=== PATIENT | male | born 1960 | race Caucasian/White ===

== ENCOUNTER 2019-02-02 07:03 | Inpatient (IN) ==
[2019-02-02] MEDS ORDERED: NORMAL SALINE 1,000 ML IV ONE (07:20)
[2019-02-02] MEDS ORDERED: ONDANSETRON HCL/PF 2 MG/ML VIAL IV ONE (07:20)
[2019-02-02] MEDS ORDERED: LORazepam 2 MG/ML DISP.SYRIN IV ONE (07:21)
--- NOTE | 2019-02-02 07:23 | ERNOTE ---
Medical Problem HPI - Narrative Date of Service: 02/02/19 - General Chief Complaint: Nausea/Vomiting Time Seen by Provider: 02/02/19 07:15 Source: patient - Immun/Allergies/Home Medications Immunizations: IMMUNIZATION HX Immunizations Up to Date Yes Allergies/Adverse Reactions: Allergies No Known Allergies Allergy (Verified 02/02/19 07:32) Home Medications: HOME MEDICATIONS Alprazolam 1 mg PO BID 02/02/19 [Last Taken Unknown] - History of Present History Narrative: 58-year-old gentleman comes to the ER complaining of nausea and vomiting which is been going on since 1030 last night. Came on out of the blue. Patient says he has had multiple episodes of bilious emesis throughout the night. Some mild epigastric discomfort. No diarrhea. No blood in his stool or emesis. No fever. He does have subjective chills. The patient drinks daily. The patient says he has been able to drink for the last 24 hours or so because of the vomiting. He also takes alprazolam up to 3 mg a day. Has not been able to keep that down either. He admits to feeling tremulous and anxious. He denies any chest pain. He denies shortness of breath. Denies sore throat runny nose blurred vision headache or other complaints Review of Systems - Review of Systems Constitutional: Present: malaise EYE: Present: no symptoms reported ENT: Present: no symptoms reported Respiratory: Present: no symptoms reported Cardiology: Present: no symptoms reported Gastrointestinal/Abdominal: Present: See HPI Genitourinary: Present: no symptoms reported Musculoskeletal: Present: no symptoms reported Skin: Present: no symptoms reported Neurological: Present: anxiety Endocrine: Present: no symptoms reported Hematologic/Lymphatic: Present: no symptoms reported Psych: Present: no symptoms reported All Other Systems: All systems neg except as marked Medical History (Updated 08/01/18 @ 08:45 by SVETLANA De La Cruz) Depression (Chronic) Refused influenza vaccine (Acute) Onset Date: ~08/01/18 COPD (chronic obstructive pulmonary disease) (Chronic) Onset Date: Unknown Anxiety disorder (Chronic) Onset Date: Unknown Lyme disease Onset Date: Unknown Surgical History: Surgical History (Updated 07/25/18 @ 07:57 by Awa Avina RN) H/O wisdom tooth extraction Onset Date: ~1997 History of tonsillectomy Onset Date: ~1967 skin cancer removal Onset Date: Unknown Family History: Family History (Updated 07/25/18 @ 07:59 by Awa Avina RN) Mother Alive and well Brother Alive and well Father , age 69 Dementia Parkinsons disease Emphysema, unspecified Grandmother Alzheimers disease Grandfather Spinal cord cancer Grandfather Parkinsons disease Son Alive and well Daughter Alive and well Social History: Preferred Language Macedonian Do you have any restorationism or No cultural preference? Smoking Status Current every day smoker Smoking packs per day 1 Alcohol Use heavy Drug Use marijuana (Last Updated 08/01/18 @ 08:46 by SVETLANA De La Cruz) No Social History Section defined Physical Exam - Physical Exam General Appearance: Present: wd/wn, alert, other - Patient appears uncomfortable, slightly tremulous Head Exam: Present: normal inspection, no evidence of injury Eye Exam: Normal inspection: bilateral, PERRL: bilateral, EOMI: bilateral Ears, Nose, Throat: Present: normal ENT inspection, normal pharynx Neck: Present: normal inspection, nontender Respiratory: Present: no respiratory distress, normal breath sounds, chest nontender, lungs clear Cardiovascular/Chest: Present: regular rate, rhythm, no murmur Gastrointestinal/Abdominal: Present: soft, other - Bowel sounds are present. Mild diffuse tenderness. No rebound or guarding Back Exam: Present: normal inspection, normal range of motion, no vertebral tenderness Extremity Exam: Present: normal inspection, non-tender, normal range of motion, no edema Neurological Exam: Present: alert, oriented, normal mood/affect, no motor/sensory deficits, other - Patient has some mild tremulousness, seems anxious Skin Exam: Present: normal color, warm/dry Lymphatic Exam: Present: no adenopathy Progress - Vital Signs Patient's Vital Signs:: I have reviewed the patient's vital signs. Vital Signs: Vital Signs 02/02/19 07:04 02/02/19 07:09 Temperature 36.9 C Pulse Rate 87 Respiratory Rate 22 H Blood Pressure 159/107 H 156/91 H O2 Sat by Pulse Oximetry 99 - EKG EKG #1 EKG read: Interp. by me EKG Comments: EKG demonstrates sinus rhythm with a ventricular rate of 82. Normal axis. Normal intervals. No ST elevation. Sinus arrhythmia. J-point elevation in V3. T waves have normal morphology. Some artifact is present - Progress/Reassessment Chief Complaint: Nausea/Vomiting Plan - Plan Plan: 58-year-old gentleman with nausea and vomiting since last night. Heavy drinker. He is tremulous. Has not been able to take his anxiety medicine overnight. Given Ativan and fluids as well as antiemetics. Case will be taken over by Dr. Sanchez at 8 AM. I really suspect the patient has pancreatitis. No x-rays have been ordered at this time. Departure Clinical Impression: Vomiting - Departure Disposition: Still a patient Condition: Stable Referrals: Cait Newsome FNP [Primary Care Provider] -
[2019-02-02 07:39] LABS: Hematocrit 40.3 % (42.0-52.0); Hemoglobin 14.6 gm/dL (13.5-18.0); Mean Cell Volume 86.5 fl (78-100); Mean Corpuscular Hemoglobin 31.3 pg (27-31); Mean Corpuscular Hgb Conc 36.2 g/dl (32-36); Mean Platelet Volume 8.5 fl (8-11.3); Neutrophil # 4.5 K/mm3 (1.3-6.0); Neutrophil % 71.4 % (42-75.0); Platelet Count 262 K/mm3 (150-450); Red Blood Count 4.66 M/mm3 (4.7-6.0); Red Cell Distribution Width 11.8 % (11.5-14.0); White Blood Count 6.3 K/mm3 (4.0-10.5)
[2019-02-02 07:58] LABS: ALT 19 U/L (19-67); AST 26 U/L (0-48); Albumin * 4.2 gm/dl (3.4-5.0); Alkaline Phosphatase * 66 U/L (50-170); Anion Gap 17.6 mmol/L (6.8-13.8); BUN/Creatinine Ratio 8.8 (9.0-21.6); Bilirubin, Total 1.2 mg/dL (0.0-1.1); Blood Urea Nitrogen 6 mg/dL (6-23); Ca. Corrected For Albumin 8.7 mg/dL (8.4-10.2); Calcium * 9.2 mg/dL (7.9-10.9); Carbon Dioxide 21.9 mmol/L (24-32.6); Chloride 87 mmol/L (97-106); Glucose * 94 mg/dL (70-110); Lipase 63 U/L (73-393); Potassium 3.5 mmol/L (3.4-4.6); Sodium 123 mmol/L (132-142); Total Protein 7.1 gm/dL (6.2-8.2)
[2019-02-02 07:59] LABS: Troponin I Less than 0.017 ng/mL (0.00-0.10)
[2019-02-02] MEDS ORDERED: SODIUM CHLORIDE 3 % 500 ML IV SCH (08:15)
[2019-02-02 08:53] LABS: Urine Bilirubin Negative (NEGATIVE); Urine Ketone 15 mg/dL (NEGATIVE); Urine Nitrite Negative (NEGATIVE); Urine Protein Negative (NEGATIVE); Urine Urobilinogen Normal (NORMAL)
[2019-02-02 09:00] LABS: Urine Amorphous Sediment Few - 1+ (NONE-FEW); Urine Appearance Cloudy (CLEAR); Urine Bacteria None Seen; Urine Blood 5 /ul (NEGATIVE); Urine Color Pale Yellow; Urine RBC TRACE /hpf (0-5); Urine WBC None Seen /hpf (0-5)
[2019-02-02 09:05] LABS: Cocaine Ur Negative (NEGATIVE); Urine Barbiturate Negative (NEGATIVE); Urine Benzodiazepines Negative (NEGATIVE); Urine Opiates Negative (NEGATIVE); Urine PCP Negative (NEGATIVE); Urine THC Negative (NEGATIVE)
[2019-02-02] MEDS: MULTIVIT INFUSN,ADULT 4,VIT K 10 ML, THIAMINE HCL 100 MG in NORMAL SALINE 1,000 ML IV SCH ×2 (09:32→17:21)
[2019-02-02] MEDS ORDERED: LORazepam 2 MG/ML DISP.SYRIN IV PRN ×3 (10:11)
--- NOTE | 2019-02-02 12:56 | HP ---
Chief Complaint - Chief Complaint Date of Service: 02/02/19 Time of Service: 12:41 Chief Complaint: Nausea/vomiting, hyponatremia, alcohol intake History of Present Illness: 58-year-old male with history of alcohol abuse and anxiety presented to the ER for nausea and vomiting which started the night before after eating what he thinks was bad coleslaw. Patient states that he has vomited "multiple times throughout the night" with some abdominal pain. He denies diarrhea, or blood in his emesis. He denies fevers or chills. Patient does admit to feeling anxious, states he has been able to keep his Xanax down for anxiety since he got nauseated. Patient's lab work was pertinent for normal white count and hemogram, can panel showed him to be hyponatremic at 123 with normal kidney function and a slightly elevated bilirubin, his urine showed trace urine blood but no other abnormalities, and his tox screen was positive for alcohol 58. Patient was admitted to the floor as inpatient due to hyponatremia. Patient was started on 3% normal saline by initial ER provider, Covering provider and I discussed this and decided it was best to slow down his sodium correction and switched him over to a banana bag to be ran out 200 cc an hour. Patient endorses drinking daily anywhere from 8-12 beers a night. Patient states he takes Xanax for anxiety. Medical History (Updated 02/02/19 @ 09:04 by Heidi Sanchez MD) Depression (Chronic) Refused influenza vaccine (Acute) Onset Date: ~08/01/18 COPD (chronic obstructive pulmonary disease) (Chronic) Onset Date: Unknown Anxiety disorder (Chronic) Onset Date: Unknown Lyme disease Onset Date: Unknown Surgical History: Surgical History (Updated 07/25/18 @ 07:57 by Awa Avina RN) H/O wisdom tooth extraction Onset Date: ~1997 History of tonsillectomy Onset Date: ~1967 skin cancer removal Onset Date: Unknown Family History: Family History (Updated 07/25/18 @ 07:59 by Awa Avina RN) Mother Alive and well Brother Alive and well Father , age 69 Dementia Parkinsons disease Emphysema, unspecified Grandmother Alzheimers disease Grandfather Spinal cord cancer Grandfather Parkinsons disease Son Alive and well Daughter Alive and well Social History: Patient Lives/Resources daughter Utilized Preferred Language Polish Do you have any caodaism or No cultural preference? Smoking Status Current every day smoker Have you smoked in the past 12 Yes months Smoking packs per day 1 Do you dip or chew tobacco No Alcohol Use heavy Drug Use marijuana (Last Updated 08/01/18 @ 08:46 by SVETLANA De La Cruz) No Social History Section defined Review Of Systems (GEN) - Review of Systems Generalized/Overall Review: Present: Diaphoresis - And slight agitation. Absent: Weakness, Chills, Fever EENTM: Absent: Blurred Vision, Double Vision Respiratory: Absent: Cough, Shortness of Breath Cardiac: Absent: Chest Pain, Edema, Palpitations Abdominal: Present: Nausea, Vomiting, Abdominal Pain. Absent: Hematemesis, Diarrhea Genitourinary: Present: No Symptoms Reported Musculoskeletal: Present: No Symptoms Reported Skin: Present: No Symptoms Reported Immunizations: IMMUNIZATION HX Immunizations Up to Date Yes Allergies/Adverse Reactions: Allergies Allergy/AdvReac Type Severity Reaction Status Date / Time No Known Allergies Allergy Verified 02/02/19 07:32 Home Medications: HOME MEDICATIONS Alprazolam 1 mg PO TID PRN 02/02/19 [Last Taken Unknown] Exam - Exam Vital Signs: Vital Signs - Last Taken Temp 37.2 C 02/02/19 11:40 Pulse 79 02/02/19 11:40 Resp 18 02/02/19 11:40 BP 142/85 02/02/19 11:40 Pulse Ox 99 02/02/19 11:40 Constitutional: Present: Alert, Oriented x3, Somnolent, Looks Older than stated age ENT Exam: Present: hearing grossly normal. Absent: nasal congestion, nasal drainage Eye Exam: bilateral eye: normal inspection Neck: Present: non-tender, supple Respiratory: Present: lungs clear, normal breath sounds Cardiovascular/Chest: Present: regular rate, rhythm, no murmur Abdomen: Present: Normal bowel sounds, soft, nontender /Rectal: Present: Exam deferred Skin Exam: Present: normal color, warm/dry Neurologic: Present: alert, oriented x 3, depressed affect Appearance: Present: disheveled Eye contact: Present: normal speech, avoids eye contact Thoughts: Present: normal thought pattern Diagnostic Studies: Abnormal Lab Results 02/02/19 02/02/19 02/02/19 Range/Units 07:34 07:34 07:34 RBC 4.66 L (4.7-6.0) M/mm3 Hct 40.3 L (42.0-52.0) % MCH 31.3 H (27-31) pg MCHC 36.2 H (32-36) g/dl Lymphocytes # 1.31 L (1.5-3.5) k/mm3 Sodium 123 L (132-142) mmol/L Plasma Sodium 123 L (130-142) mmol/L Chloride 87 L (97-106) mmol/L Carbon Dioxide 21.9 L (24-32.6) mmol/L Anion Gap 17.6 H (6.8-13.8) mmol/L BUN/Creatinine Ratio 8.8 L (9.0-21.6) Total Bilirubin 1.2 H (0.0-1.1) mg/dL Lipase 63 L (73-393) U/L Urine pH (5.0-7.0) pH Urine Blood (NEGATIVE) /ul Ethyl Alcohol 58.0 H (0.0-10.0) mg/dL 02/02/19 Range/Units 08:53 RBC (4.7-6.0) M/mm3 Hct (42.0-52.0) % MCH (27-31) pg MCHC (32-36) g/dl Lymphocytes # (1.5-3.5) k/mm3 Sodium (132-142) mmol/L Plasma Sodium (130-142) mmol/L Chloride (97-106) mmol/L Carbon Dioxide (24-32.6) mmol/L Anion Gap (6.8-13.8) mmol/L BUN/Creatinine Ratio (9.0-21.6) Total Bilirubin (0.0-1.1) mg/dL Lipase (73-393) U/L Urine pH 8.0 H (5.0-7.0) pH Urine Blood 5 H (NEGATIVE) /ul Ethyl Alcohol (0.0-10.0) mg/dL Laboratory Results WBC 6.3 K/mm3 (4.0-10.5) 02/02/19 07:34 RBC 4.66 M/mm3 (4.7-6.0) L 02/02/19 07:34 Hgb 14.6 gm/dL (13.5-18.0) 02/02/19 07:34 Hct 40.3 % (42.0-52.0) L 02/02/19 07:34 MCV 86.5 fl (78-100) 02/02/19 07:34 MCH 31.3 pg (27-31) H 02/02/19 07:34 MCHC 36.2 g/dl (32-36) H 02/02/19 07:34 RDW 11.8 % (11.5-14.0) 02/02/19 07:34 Plt Count 262 K/mm3 (150-450) 02/02/19 07:34 MPV 8.5 fl (8-11.3) 02/02/19 07:34 Immature Gran % (Auto) 0.30 % (0.001-0.429) 02/02/19 07:34 Immature Gran # (Auto) 0.02 K/mm3 (0.000-0.0310) 02/02/19 07:34 71.4 % (42-75.0) 02/02/19 07:34 20.9 % (20-51) 02/02/19 07:34 6.8 % (0.0-9) 02/02/19 07:34 0.0 % (0.0-3.0) 02/02/19 07:34 0.6 % (0.0-1.0) 02/02/19 07:34 Nucleated RBC % 0.0 k/mm3 (0-1) 02/02/19 07:34 4.5 K/mm3 (1.3-6.0) 02/02/19 07:34 1.31 k/mm3 (1.5-3.5) L 02/02/19 07:34 0.4 k/mm3 (0.0-1.0) 02/02/19 07:34 0.0 k/mm3 (0.0-0.7) 02/02/19 07:34 Absolute Basophils 0.0 k/mm3 (0.0-0.1) 02/02/19 07:34 Sodium 123 mmol/L (132-142) L 02/02/19 07:34 123 mmol/L (130-142) L 02/02/19 07:34 Potassium 3.5 mmol/L (3.4-4.6) 02/02/19 07:34 Chloride 87 mmol/L (97-106) L 02/02/19 07:34 Carbon Dioxide 21.9 mmol/L (24-32.6) L 02/02/19 07:34 17.6 mmol/L (6.8-13.8) H 02/02/19 07:34 BUN 6 mg/dL (6-23) 02/02/19 07:34 0.68 mg/dL (0.4-1.4) 02/02/19 07:34 Est GFR (Non-Af Amer) 126 mL/min (60-130) D 02/02/19 07:34 8.8 (9.0-21.6) L 02/02/19 07:34 94 mg/dL (70-110) 02/02/19 07:34 Calcium 9.2 mg/dL (7.9-10.9) 02/02/19 07:34 Calcium Adj for Albumin 8.7 mg/dL (8.4-10.2) 02/02/19 07:34 1.2 mg/dL (0.0-1.1) H 02/02/19 07:34 AST 26 U/L (0-48) 02/02/19 07:34 ALT 19 U/L (19-67) 02/02/19 07:34 66 U/L (50-170) 02/02/19 07:34 Less than 0.017 ng/mL (0.00-0.10) 02/02/19 07:34 7.1 gm/dL (6.2-8.2) 02/02/19 07:34 4.2 gm/dl (3.4-5.0) 02/02/19 07:34 63 U/L (73-393) L 02/02/19 07:34 Pale yellow 02/02/19 08:53 Cloudy (CLEAR) 02/02/19 08:53 8.0 pH (5.0-7.0) H 02/02/19 08:53 Ur Specific [place] 1.010 SP.GR. (1.005-1.030) 02/02/19 08:53 Negative mg/dL (NEGATIVE) 02/02/19 08:53 Negative mg/dL (NEGATIVE) 02/02/19 08:53 15 mg/dL (NEGATIVE) 02/02/19 08:53 5 /ul (NEGATIVE) H 02/02/19 08:53 Negative (NEGATIVE) 02/02/19 08:53 Negative mg/dl (NEGATIVE) 02/02/19 08:53 Normal EU/dl (NORMAL) 02/02/19 08:53 Ur Leukocyte Esterase Negative /ul (NEGATIVE) 02/02/19 08:53 Trace /hpf (0-5) 02/02/19 08:53 None seen /hpf (0-5) 02/02/19 08:53 Ur Epithelial Cells None seen /hpf (0-5) 02/02/19 08:53 Amorphous Sediment Few - 1+ (NONE-FEW) 02/02/19 08:53 None seen (NONE) 02/02/19 08:53 No culture indicated 02/02/19 08:53 Negative (NEGATIVE) 02/02/19 08:53 Negative (NEGATIVE) 02/02/19 08:53 Ur Phencyclidine Scrn Negative (NEGATIVE) 02/02/19 08:53 Urine Amphetamine Negative (NEGATIVE) 02/02/19 08:53 U Benzodiazepines Scrn Negative (NEGATIVE) 02/02/19 08:53 Negative (NEGATIVE) 02/02/19 08:53 Negative (NEGATIVE) 02/02/19 08:53 Ethyl Alcohol 58.0 mg/dL (0.0-10.0) H 02/02/19 07:34 Assessment/Plan - Narrative Narrative: 58-year-old male admitted to the floor for hyponatremia, stopped the 3% saline infusion and started him on a banana bag. Thiamine and folate to be given orally starting tomorrow, replenished today in his banana bag. We will monitor BMPs every 6 hours for sodium correction. CIWA scores ordered due to alcoholism and concern for withdrawal. Lorazepam to be given as directed for signs of withdrawal. Xanax currently being held for his anxiety as he will receive lorazepam. Currently vital signs are stable. Initially blood pressure was elevated but this has since returned to normal. He is afebrile, normal heart rate and sats. We will order clear liquid diet, zofran as needed for nausea. SCDs to be worn while in bed. Vital signs every 2 hours. Nurse will call with any questions or concerns. - Assessment/Plan (1) Hyponatremia Problem: Acute (2) ETOH abuse Problem: Acute (3) Gastroenteritis Problem: Acute (4) Anxiety disorder Problem: Chronic Qualifiers:
[2019-02-02 13:12] LABS: BUN/Creatinine Ratio 8.3 (9.0-21.6); Calcium * 8.7 mg/dL (7.9-10.9); Carbon Dioxide 22.7 mmol/L (24-32.6); Estimated Creat Clear 143.7; Potassium 3.7 mmol/L (3.4-4.6)
[2019-02-02] MEDS ORDERED: ONDANSETRON HCL/PF 2 MG/ML VIAL IV PRN (14:09)
[2019-02-02] MEDS: NORMAL SALINE 1,000 ML IV PRN ×2 (15:18→22:09)
[2019-02-02] MEDS ORDERED: MAG HYDROX/ALUMINUM HYD/SIMETH 30 ML UDC PO ONE (18:14)
[2019-02-02] MEDS ORDERED: LIDOCAINE HCL 20 ML UDC PO ONE (18:14)
[2019-02-02] MEDS ORDERED: SUCRALFATE 1 G/10 ML UDC PO ONE (18:14)
[2019-02-02 19:00] LABS: Anion Gap 12.9 mmol/L (6.8-13.8); BUN/Creatinine Ratio 7.9 (9.0-21.6); Calcium * 8.1 mg/dL (7.9-10.9); Carbon Dioxide 25.4 mmol/L (24-32.6); Estimated Creat Clear 113.4; Potassium 3.3 mmol/L (3.4-4.6)
[2019-02-03 01:02] LABS: Anion Gap 12.4 mmol/L (6.8-13.8); BUN/Creatinine Ratio 9.2 (9.0-21.6); Calcium * 8.5 mg/dL (7.9-10.9); Carbon Dioxide 26.2 mmol/L (24-32.6); Estimated Creat Clear 132.6; Potassium 3.6 mmol/L (3.4-4.6)
[2019-02-03 06:39] LABS: Anion Gap 10.6 mmol/L (6.8-13.8); BUN/Creatinine Ratio 11.3 (9.0-21.6); Calcium * 8.4 mg/dL (7.9-10.9); Carbon Dioxide 25.7 mmol/L (24-32.6); Estimated Creat Clear 121.4; Potassium 3.3 mmol/L (3.4-4.6)
[2019-02-03] MEDS ORDERED: FOLIC ACID 1 MG TABLET PO SCH (09:00)
[2019-02-03] MEDS ORDERED: THIAMINE HCL 100 MG TABLET PO SCH (09:00)
[2019-02-03] MEDS ORDERED: POTASSIUM CHLORIDE 40 MEQ/15 ML LIQUID PO ONE (10:28)
--- NOTE | 2019-02-03 10:38 | DS ---
(1) Hyponatremia Problem: Resolved (2) ETOH abuse Problem: Chronic (3) Gastroenteritis Problem: Resolved (4) Anxiety disorder Problem: Chronic Qualifiers: Description of Stay: 58-year-old male admitted to the floor due to hyponatremia likely from chronic alcohol abuse as well as gastroenteritis. Hyponatremia resolved with gentle normal saline fluid resuscitation with every 6 hours BMPs. On day of discharge his sodium was back up to 135 (was 123). Patient stated he was feeling much better, denied any nausea or vomiting since being here. He was hungry and ready to be started back on a regular diet which he was given prior to discharge which he tolerated well. His vital signs been stable most recent blood pressure 122/75, heart rate 62, afebrile. Respiratory rate was 16 sat 90% room air. Patient was monitored for alcohol withdrawal which he had low CIWA scores, not requiring any benzodiazepine therapy. Patient was discharged home in stable condition, advised to follow-up with his PCP in 1-2 weeks. No changes to his home medications. Procedures Performed: none Results and Findings: Lab Pending Results 02/02/19 07:34: WBC 6.3, RBC 4.66 L, Hgb 14.6, Hct 40.3 L, MCV 86.5, MCH 31.3 H, MCHC 36.2 H, RDW 11.8, Plt Count 262, MPV 8.5, Immature Gran % (Auto) 0.30, Immature Gran # (Auto) 0.02, Neutrophils % 71.4, Lymphocytes % 20.9, Monocytes % 6.8, Eosinophils % 0.0, Basophils % 0.6, Nucleated RBC % 0.0, Neutrophils # 4.5, Lymphocytes # 1.31 L, Monocytes # 0.4, Eosinophils # 0.0, Absolute Basophils 0.0 02/02/19 07:34: Sodium 123 L, Plasma Sodium 123 L, Potassium 3.5, Chloride 87 L, Carbon Dioxide 21.9 L, Anion Gap 17.6 H, BUN 6, Creatinine 0.68, Est GFR (Non-Af Amer) 126 D, BUN/Creatinine Ratio 8.8 L, Random Glucose 94, Calcium 9.2, Calcium Adj for Albumin 8.7, Total Bilirubin 1.2 H, AST 26, ALT 19, Alkaline Phosphatase 66, Troponin I Less than 0.017, Total Protein 7.1, Albumin 4.2, Lipase 63 L 07/06/19 07:34: Ethyl Alcohol 58.0 H 02/02/19 08:53: Urine Color Pale yellow, Urine Appearance Cloudy, Urine pH 8.0 H, Ur Specific [place] 1.010, Urine Protein Negative, Urine Glucose (UA) Negative, Urine Ketones 15, Urine Blood 5 H, Urine Nitrate Negative, Urine Bilirubin Negative, Urine Urobilinogen Normal, Ur Leukocyte Esterase Negative, Urine RBC Trace, Urine WBC None seen, Ur Epithelial Cells None seen, Amorphous Sediment Few - 1+, Urine Bacteria None seen, Urine Culture Comments No culture indicated 02/02/19 08:53: Urine Opiates Screen Negative, Barbiturate Screen Negative, Ur Phencyclidine Scrn Negative, Urine Amphetamine Negative, U Benzodiazepines Scrn Negative, Urine Cocaine Screen Negative, Urine Marijuana (THC) Negative 02/02/19 12:53: Sodium 124 L, Plasma Sodium 124 L, Potassium 3.7, Chloride 90 L, Carbon Dioxide 22.7 L, Anion Gap 15.0 H, BUN 5 L, Creatinine 0.60, Est GFR (Non- Af Amer) 146 H, BUN/Creatinine Ratio 8.3 L, Random Glucose 111 H, Calcium 8.7 02/02/19 18:38: Sodium 131 L, Plasma Sodium 132, Potassium 3.3 L, Chloride 96 L, Carbon Dioxide 25.4, Anion Gap 12.9, BUN 6, Creatinine 0.76, Est GFR (Non-Af Amer) 111 D, BUN/Creatinine Ratio 7.9 L, Random Glucose 146 H D, Calcium 8.1 02/03/19 00:39: Sodium 136, Plasma Sodium 136, Potassium 3.6, Chloride 101, Carbon Dioxide 26.2, Anion Gap 12.4, BUN 6, Creatinine 0.65, Est GFR (Non-Af Amer) 133 H, BUN/Creatinine Ratio 9.2, Random Glucose 96 D, Calcium 8.5 02/03/19 06:27: Sodium 135, Plasma Sodium 135, Potassium 3.3 L, Chloride 102, Carbon Dioxide 25.7, Anion Gap 10.6, BUN 8, Creatinine 0.71, Est GFR (Non-Af Amer) 120, BUN/Creatinine Ratio 11.3, Random Glucose 92, Calcium 8.4 Discharge Location: Home Disposition: Home self-care Condition: Stable Discharge Activity: Activity as tolerated Discharge Diet: General/regular food Referrals: Cait Newsome FNP [Primary Care Provider] - Two Weeks Complete Home Medications List: Complete Home Medication List: Alprazolam 1 mg PO TID PRN 02/02/19
[2019-02-03 11:35] VITALS: BP 114/80
== END 2019-02-03 12:15 | disposition home or self-care (01) | DRG 641 ==
LOC: ER 07:03 → MS 09:10
PROVIDERS: ADMIT Family Medicine; ATTEND Family Medicine
CPT/HCPCS: 36415; 74019; 74020; 80048; 80053; 80307; 80320; 81001; 83690; 84484; 85025; 93005; 96361; 96374; 96375; 99284; G0481; J2405